=== PATIENT | male | born 1930 | race Caucasian/White ===

== ENCOUNTER 2020-08-29 09:59 | Emergency (ER) | payer OTHER ==
[~2020-08-29] VITALS: Ht 180.3 cm; Wt 87.1 kg
[2020-08-29 10:30] LABS: BASOPHILS ABSOLUTE AUTO 0.07 K/mm3 (0.00-0.23); BASOPHILS PERCENT AUTO 1 % (0-2); EOSINOPHILS PERCENT AUTO 0 % (0-6); Hematocrit 37.5 % (37.0-53.0); Hemoglobin 11.7 g/dL (13.5-17.5); IMMATURE GRAN ABSOLUTE AUTO 0.02 K/mm3 (0.00-0.10); IMMATURE GRAN PERCENT AUTO 0 % (0-1); LYMPHOCYTES PERCENT AUTO 26 % (21-46); MONOCYTES ABSOLUTE AUTO 0.61 K/mm3 (0.16-1.47); MONOCYTES PERCENT AUTO 8 % (4-13); Mean Corpuscular HGB 29.9 pg (26.0-34.0); Mean Corpuscular HGB Conc 31.2 g/dL (31.5-36.5); Mean Corpuscular Volume 96 fL (80-100); Mean Platelet Volume 11.2 fL (9.1-12.4); NEUTROPHILS ABSOLUTE AUTO 4.74 K/mm3 (1.96-9.15); NEUTROPHILS PERCENT AUTO 65 % (41-73); Platelet Count 186 K/mm3 (150-400); RDW Coefficient Variation 15.4 % (11.7-14.2); RDW Standard Deviation 54.1 fL (35.1-46.3); Red Blood Cell Count 3.91 M/mm3 (4.30-5.90); White Blood Cell Count 7.34 K/mm3 (4.00-11.30)
[2020-08-29] MEDS ORDERED: FURO40 PO (10:49)
[2020-08-29] MEDS ORDERED: GABA300 PO (10:50)
[2020-08-29] MEDS ORDERED: Neurontin600 MG PO (10:51)
[2020-08-29] MEDS ORDERED: TAMS.4ER PO (10:51)
[2020-08-29] MEDS ORDERED: AMLO5 PO (10:52)
[2020-08-29] MEDS ORDERED: ALLO300 PO (10:52)
[2020-08-29] MEDS ORDERED: TIMO.5OPSO RIGHTEYE (10:52)
[2020-08-29] MEDS ORDERED: ROSU10TA PO (10:52)
[2020-08-29] MEDS ORDERED: LATA.005SO BOTHEYES (10:53)
[2020-08-29 10:55] LABS: Albumin, Blood 3.4 g/dL (3.4-5.0); Albumin/Globulin Ratio 0.7 (0.8-1.8); Bilirubin, Total 0.5 mg/dL (0.1-1.0); Bun/Creatinine Ratio 18.3 (12.0-20.0); Calcium, Blood 9.4 mg/dL (8.5-10.1); Creatinine, Blood 1.53 mg/dL (0.60-1.20); Globulin, Blood 4.8 g/dL (2.2-4.0); Potassium, Blood 3.7 mmol/L (3.5-5.5); Thyroid Stimulating Hormone 4.29 uIU/mL (0.360-4.800); Total Protein, Blood 8.2 g/dL (6.4-8.2); Troponin I 0.032 ng/mL (0.000-0.040)
[2020-08-29 11:03] LABS: Source, Urine Voided
[2020-08-29 11:10] LABS: Appearance, Urine Clear (Clear); Bilirubin, Urine Neg (Neg); Blood, Urine Neg (Neg); Color, Urine Yellow (P-Yellow); Glucose Qualitative, Urine Neg (Neg); Ketones, Urine Neg (Neg); Leukocyte Esterase, Urine Neg (Neg); Nitrite, Urine Neg (Neg); Protein, Urine Neg (Neg); Urobilinogen, Urine NORM (Normal)
== END 2020-08-29 13:07 | disposition home or self-care (01) ==
LOC: ER 09:59
PROVIDERS: Emergency Medicine
DX: J98.59 Other diseases of mediastinum, not elsewhere classified (principal); R07.9 Chest pain, unspecified; G40.909 Epilepsy, unspecified, not intractable, without status epilepticus; I10 Essential (primary) hypertension; E78.5 Hyperlipidemia, unspecified; Z88.0 Allergy status to penicillin; Z79.899 Other long term (current) drug therapy
CPT/HCPCS: 36415; 71046; 71260; 80053; 81003; 83690; 83880; 84443; 84484; 85025; 93005; 93010; 96361; 96374; 99285-25; J1940; J7030; Q9967